=== PATIENT | female | born 1970 | race Caucasian/White ===

== ENCOUNTER 2017-06-10 09:14 | Observation (INO) | payer MEDICAID, OTHER ==
[~2017-06-10] VITALS: Ht 157.5 cm; Wt 70.5 kg
[2017-06-10] MEDS ORDERED: ASPIRIN 325 MG TAB PO STA (10:01)
[2017-06-10] MEDS ORDERED: NITROGLYCERIN 2% 1 GM OINT PKT TD STA (10:01)
--- NOTE | 2017-06-10 11:28 | RADRPT ---
PROCEDURE: XR Chest. CLINICAL INDICATION: chest pain TECHNIQUE: Single frontal view of the chest was obtained COMPARISON: None FINDINGS: The heart and mediastinum are within normal limits. The lungs are clear. There is no pleural effusion or pneumothorax. RPTAT: AA IMPRESSION: No acute disease. .Jesu Jaramillo MD, Date Time Electronically viewed and signed by .Jesu Jaramillo MD, on 06/10/2017 11:27 .S/
[2017-06-10 13:53] LABS: BASOPHILS % 0.5 % (0.0-2.0); EOSINOPHILS % 0.5 % (0.0-7.0); HEMATOCRIT 40.8 % (37.0-47.0); HEMOGLOBIN 13.5 g/dl (12.0-16.0); LYMPHOCYTES # 1.3 10^3/ul (0.8-2.9); LYMPHOCYTES % 19.5 % (15.0-51.0); MEAN CORPUSCULAR HEMOGLOBIN 30.2 pg (29.0-33.0); MEAN CORPUSCULAR HGB CONC 33.1 g/dl (32.0-37.0); MEAN CORPUSCULAR VOLUME 91.3 fl (82.0-101.0); MEAN PLATELET VOLUME 10.7 fl (7.4-10.4); MONOCYTE # 0.3 10^3/ul (0.3-0.9); MONOCYTES % 5.1 % (0.0-11.0); NEUTROPHIL # 4.8 10^3/ul (1.6-7.5); NEUTROPHILS % 74.1 % (39.0-77.0); PLATELET COUNT 240 10^3/UL (140-415); RED BLOOD COUNT 4.47 10^6/ul (4.20-5.40); RED CELL DISTRIBUTION WIDTH 13.2 % (11.5-14.5); WHITE BLOOD COUNT 6.4 10^3/ul (4.8-10.8)
[2017-06-10 14:03] VITALS: TEMP 98
[2017-06-10 14:08] LABS: INR 0.88; PROTIME 11.9 Sec (12.2-14.2); PT RATIO 0.9
[2017-06-10 14:09] LABS: PARTIAL THROMBOPLASTIN TIME 27.3 Sec (25.0-35.0)
[2017-06-10] MEDS ORDERED: SOD CHLORIDE 0.9% 1,000 ML IV STA (14:10)
[2017-06-10 14:11] LABS: ALANINE AMINOTRANSFERASE 39 IU/L (13-69); ALBUMIN 4.2 g/dl (3.3-4.9); ALBUMIN/GLOBULIN RATIO 1.27; ALKALINE PHOSPHATASE 99 IU/L (42-121); ANION GAP 17 (8-16); ASPARTATE AMINO TRANSFERASE 26 IU/L (15-46); BILIRUBIN,INDIRECT 0.2 mg/dl (0-1.1); BILIRUBIN,TOTAL 0.2 mg/dl (0.2-1.3); BLOOD UREA NITROGEN 8 mg/dl (7-20); CALCIUM 8.8 mg/dl (8.4-10.2); CARBON DIOXIDE 24 mmol/L (21-31); CHLORIDE 107 mmol/L (97-110); CREATININE 0.64 mg/dl (0.44-1.00); GLUCOSE 91 mg/dl (70-220); SODIUM 144 mmol/L (135-144); TOTAL PROTEIN 7.5 g/dl (6.1-8.1)
--- NOTE | 2017-06-10 14:21 | ERA ---
ER Documentation Chief Complaint Date/Time DATE: 06/10/17 TIME: 14:18 Chief Complaint Complains of chest pain since this am HPI Is a 46-year-old female who states she is history of high cholesterol complains of chest pain for the past 3 weeks is getting worse progressively. She says today is getting stronger than usual she complains of some substernal chest pressure with radiation to the left arm some mild shortness of breath no diaphoresis palpitations. The patient denies any recent excessive stress in her life or anxiety or sense of impending doom however here in the ER she seems tearful. When I asked her why she is tearful as she is having some type of anxiety reaction she states this is the first time that she does not like this before. ROS All systems reviewed and are negative except as per history of present illness. Medications Home Meds No Active Prescriptions or Reported Meds Allergies Allergies: Coded Allergies: No Known Allergy (Unverified , 06/10/17) PMhx/Soc Medical and Surgical Hx: pt denies Medical Hx, pt denies Surgical Hx Hx Alcohol Use: No Hx Substance Use: No Hx Tobacco Use: No Smoking Status: Never smoker FmHx Family History: No coronary disease Physical Exam Vitals Vital Signs Date Time Temp Pulse Resp B/P Pulse Ox O2 Delivery O2 Flow Rate FiO2 06/10/17 14:03 98.0 63 20 125/89 100 Room Air 06/10/17 12:15 98.0 71 18 129/71 99 Room Air 06/10/17 12:15 Nasal Cannula 06/10/17 09:17 98.3 94 20 147/86 98 Physical Exam Const: Well-developed, well-nourished Head: Atraumatic, normocephalic Eyes: Normal Conjunctiva, PERRLA, EOMI, normal sclera, no nystagmus ENT: Normal External Ears, Nose and Mouth, moist mucus membranes. Neck: Full range of motion. No meningismus, no lymphadenopathy. Resp: Clear to auscultation bilaterally, no wheezing, rhonchi, rales Cardio: Regular rate and rhythm, no murmurs, S1 S2 present Abd: Soft, non tender x 4, non distended. Normal bowel sounds, no guarding or rebound, no pulsitile abdominal masses or bruits Skin: No petechiae or rashes, no ecchymosis , no maculopapular rash Back: No midline or flank tenderness Ext: No cyanosis, or edema, FROM x 4, normal inspection, neurovascularly intact x 4 Neur: Awake and alert, STR 5/5 x 4, sensation intact x 4, no focal findings, cerebellum intact Psych: Somewhat tearful Result Diagram: 06/10/17 1335 06/10/17 1335 Results 24 hrs Laboratory Tests Test 06/10/17 13:35 White Blood Count 6.410^3/ul Red Blood Count 4.4710^6/ul Hemoglobin 13.5g/dl Hematocrit 40.8% Mean Corpuscular Volume 91.3fl Mean Corpuscular Hemoglobin 30.2pg Mean Corpuscular Hemoglobin Concent 33.1g/dl Red Cell Distribution Width 13.2% Platelet Count 09956^3/UL Mean Platelet Volume 10.7fl Neutrophils % 74.1% Lymphocytes % 19.5% Monocytes % 5.1% Eosinophils % 0.5% Basophils % 0.5% Nucleated Red Blood Cells % 0.0/100WBC Neutrophils # 4.810^3/ul Lymphocytes # 1.310^3/ul Monocytes # 0.310^3/ul Eosinophils # 0.010^3/ul Basophils # 0.010^3/ul Nucleated Red Blood Cells # 0.010^3/ul Prothrombin Time 11.9Sec Prothrombin Time Ratio 0.9 INR International Normalized Ratio 0.88 Activated Partial Thromboplast Time 27.3Sec Sodium Level 144mmol/L Potassium Level 4.0mmol/L Chloride Level 107mmol/L Carbon Dioxide Level 24mmol/L Anion Gap 17 Blood Urea Nitrogen 8mg/dl Creatinine 0.64mg/dl Glucose Level 91mg/dl Calcium Level 8.8mg/dl Total Bilirubin 0.2mg/dl Direct Bilirubin 0.00mg/dl Indirect Bilirubin 0.2mg/dl Aspartate Amino Transf (AST/SGOT) 26IU/L Alanine Aminotransferase (ALT/SGPT) 39IU/L Alkaline Phosphatase 99IU/L Troponin I Pending Total Protein 7.5g/dl Albumin 4.2g/dl Globulin 3.30g/dl Albumin/Globulin Ratio 1.27 Current Medications Medications (Trade) Dose Ordered Sig/Timmy Route PRN Reason Start Time Stop Time Status Last Admin Dose Admin Aspirin (Aspirin) 325 mg ONCE STAT PO 06/10/17 10:01 06/10/17 10:03 DC 06/10/17 10:35 Nitroglycerin (Nitroglycerin 2% Oint) 1 inch ONCE STAT TD 06/10/17 10:01 06/10/17 10:03 DC 06/10/17 10:35 Insulin Human Regular 8 unit 8 unit ONCE ONCE SC 06/10/17 14:30 06/10/17 14:31 Sodium Chloride (NS) 1,000 ml @ 1,000 mls/hr Q1H STAT IV 06/10/17 14:10 06/10/17 15:09 Procedures/MDM EKG: Rate/Rhythm: Normal Sinus Rhythm,NL intervals QRS, ST, QT: NORMAL MI, QRS, QT] Impression: NORMAL EKG PROCEDURE: XR Chest. CLINICAL INDICATION: chest pain TECHNIQUE: Single frontal view of the chest was obtained COMPARISON: None FINDINGS: The heart and mediastinum are within normal limits. The lungs are clear. There is no pleural effusion or pneumothorax. RPTAT: AA IMPRESSION: No acute disease. .Jesu Jaramillo MD, MD Date Time Electronically viewed and signed by .Jesu Jaramillo MD, MD on 06/10/2017 11: 27 .S/ CC: JOSE SHIELDS DO Patient's symptoms are concerning for cardiac cause will require inpatient workup and continuous monitoring. Further w/u for ischemia, arrhythmia, PE or dissection will be deferred to the inpatient team. Accepting Care Team: Current data and ongoing care discussed. Time: Time of admission Primary Provider: [XOXOXO] Consulting: [XOXOXO] Outstanding Data: none Departure Diagnosis: Primary Impression: Chest pain Qualified Code: R07.9 - Chest pain, unspecified type Condition: Stable JOSE SHIELDS DO Jun 10, 2017 14:21
[2017-06-10 14:24] LABS: TROPONIN-I < 0.012 ng/ml (0.00-0.12)
[2017-06-10] MEDS ORDERED: ACETAMINOPHEN 325 MG TAB PO PRN ×2 (14:30→16:00)
[2017-06-10] MEDS ORDERED: INSULIN REGULAR 10 ML INJ SC ONE (14:30)
[2017-06-10] MEDS ORDERED: ONDANSETRON 4 MG INJ IV PRN ×2 (14:30→16:00)
[2017-06-10] MEDS ORDERED: NACL 0.9% 3 ML SYG IV SCH (16:00)
[2017-06-10] MEDS ORDERED: HYDROCODONE/APAP (5/325) TAB PO PRN (16:00)
[2017-06-10] MEDS ORDERED: LORAZEPAM 0.5 MG TAB PO PRN (16:00)
[2017-06-10] MEDS ORDERED: NITROGLYCERIN (SL) 0.4 MG TAB SL PRN (16:00)
[2017-06-10] MEDS ORDERED: morphine 2 MG INJ IV PRN (16:00)
--- NOTE | 2017-06-10 16:09 | HP ---
Date/Time of Note Date/Time of Note DATE: 06/10/17 TIME: 16:05 Assessment/Plan VTE Prophylaxis VTE Prophylaxis Intervention: LMWH Lines/Catheters IV C[facility]ter Type [facility]from [facility] Assessment/Plan Chief Complaint/Hosp Course 1. Atypical chest pain. The patient's chest pain is most likely noncardiac in origin. However, will rule out for any underlying acute coronary syndrome with troponins and 2D echocardiogram. 2. Left breast lump. Bilateral breast ultrasound will be obtained to further evaluate this. 3. Dyslipidemia. The patient will be started on a low-cholesterol diet. A fasting lipid panel will be obtained. 4. Anxiety. The patient will be started on as needed anxiolytics. 5. Abdominal pain. The patient described the abdominal pain as chronic. Nevertheless, a CT scan of the abdomen and pelvis will be obtained to further evaluate this since the patient has been very concerned about her abdominal pain. Plan: The patient will be admitted to inpatient telemetry floor. The patient will be started on a low-cholesterol diet. The patient will be started on DVT prophylaxis and gastrointestinal prophylaxis. The patient will remain a full code. Activities will be as tolerated. The rest of the patient's management will be based on the clinical course and the results of diagnostic studies. Based on the patient's clinical presentation, she most probably requires at least one midnight;s stay for further management and evaluation of her clinical presentation. The case and management of this patient was fully discussed with Dr. Conklin. Problems: HPI/ROS Admit Date/Time Admit Date/Time Hx of Present Illness Reason for admission: Chest pain. This is a 46-year-old female with past medical history of dyslipidemia who came to the emergency room with chief complaint of left chest wall pain. Patient verbalized that she has been having chest pain on and off for the past few days. The patient denied any associated dyspnea. The patient denied any associated vomiting or diaphoresis. Patient denied any fevers or chills. The patient apparently had a mammogram done on 06/09/2017 and she was told that the there was some "abnormal finding" in the mammogram. The patient also verbalized that she noticed that she has a left breast lump for the past 3 weeks. Patient denied any nipple discharge, nipple discoloration, or nipple inversion. Since then, the patient has been very anxious and nervous. The patient verbalized that she has not been able to sleep. Patient also verbalized that she felt like as if she is going to go out and act like a mad person. Patient also verbalized a right lower quadrant abdominal pain that has been going on for a long time. The patient apparently had a right sided abdominal ultrasound done on 06/09/2017 and the patient is not sure about the results. In the emergency room, the patient had normal sinus rhythm on 12-lead EKG. The patient's initial troponins were negative. The patient was noticed to be tearful in the emergency room. She was treated with transdermal nitroglycerin and aspirin along with IV fluids in the emergency room ROS Constitutional: nausea Eyes: no complaints ENT: no complaints Respiratory: no complaints Cardiovascular: chest pain Gastrointestinal: pain Genitourinary: no complaints Musculoskeletal: back pain Skin: no complaints Neurologic: no complaints Endocrine: no complaints Lymphatic: no complaints Psychological: anxiety Immunologic: no complaints PMH/Family/Social Past Medical History Medical History: high cholesterol Past Surgical History Past Surgical Hx: other () Family History Significant Family History: diabetes Social History Works in a restaurant. Alcohol Use: none Smoking Status: Never smoker Drug Use: none Exam/Review of Systems Vital Signs Vitals Vital Signs Date Time Temp Pulse Resp B/P Pulse Ox O2 Delivery O2 Flow Rate FiO2 06/10/17 14:03 98.0 63 20 125/89 100 Room Air Exam Exam General: Adequately build 46 year-old female lying in bed in no apparent distress. HEENT: Normocephalic, atraumatic. Eyes: Anicteric sclerae, conjunctivae clear. ENT: Nasal septum midline, oral mucosa moist. Neck supple, no JVD noticed. Respiratory: Bilaterally clear breath sounds. No use of accessory muscles of respiration. No adventitious breath sounds. Cardiovascular: S1, S2 heard. No murmurs or gallops. Breasts: Left breast palpable lump at the 12 o'clock position about 1-2 cm away from the nipple. No nipple retraction. Abdomen: Soft, nontender, and nondistended. Bowel sounds positive in all 4 quadrants. Genitourinary: Deferred. Extremities: No cyanosis, no clubbing, no edema. Peripheral pulses palpable. Neurologic: Cranial nerves II through XII grossly intact. The patient is awake, alert, and oriented. Skin: Normal skin turgor. No skin rashes. Labs Result Diagram: 06/10/17 1335 06/10/17 1335 Procedures Procedures CXR IMPRESSION: No acute disease. MARIA GUADALUPE MYERS NP Jun 10, 2017 16:09
--- NOTE | 2017-06-10 16:32 | RADRPT ---
PROCEDURE: Bilateral breast ultrasound. CLINICAL INDICATION: Bilateral breast palpable lesion. TECHNIQUE: High-resolution sonography of both breasts was performed in the axial and sagittal plan es. COMPARISON: No prior study is available for comparison. FINDINGS: There is no cystic or solid mass on either side. Normal breast parenchyma is present bilaterally. IMPRESSION: 1. Normal bilateral breast ultrasound. 2. Any further management regarding any breast symptoms should be based upon clinical grounds. RPTAT: QQ .Benjamin Greco MD, MD Date Time Electronically viewed and signed by .Benjamin Greco MD, MD on 06/10/2017 16:32 .R/
[2017-06-10 18:31] VITALS: BP 128/71; PULSE 62; RESP 18
[2017-06-10 18:40] VITALS: Ht 157.5 cm; Wt 70.5 kg
[2017-06-10 19:26] LABS: BARBITURATES Negative (NEGATIVE); BENZODIAZEPINES Negative (NEGATIVE); CANNABINOIDS Negative (NEGATIVE); COCAINE Negative (NEGATIVE); OPIATES Negative (NEGATIVE)
[2017-06-10 19:58] LABS: CANCER ANTIGEN 125 11.1 U/ml (0.0-35.0); CARCINOEMBRYONIC ANTIGEN 0.7 ng/ml (0.0-5.0)
[2017-06-10 20:00] VITALS: BP 135/78; RESP 20
[2017-06-10 20:02] LABS: CANCER ANTIGEN 19-9 5.3 U/ml (0.0-37.0)
[2017-06-10 20:05] VITALS: PULSE 60
[2017-06-10 20:25] LABS: CREATINE KINASE 42 IU/L (23-200)
[2017-06-10 20:38] LABS: CK-MB 0.65 ng/ml (0.0-2.4)
[2017-06-10 20:46] LABS: TROPONIN-I < 0.012 ng/ml (0.00-0.12)
[2017-06-10] MEDS: FAMOTIDINE 20 MG TAB PO SCH (21:08)
--- NOTE | 2017-06-10 23:28 | RADRPT ---
PROCEDURE: CT Abdomen and Pelvis without contrast. CLINICAL INDICATION: Pain. TECHNIQUE: CT scan of the abdomen and pelvis was performed on a multidetector slice CT scanner. No intravenous contrast material was utilized. Sagittal and coronal reformatted images were obtained fr om the axial source images. Images were reviewed on a high-resolution PACS workstation. Exam CTDlvol = 11 mGy and DLP = 566 Gy-cm. One of the following 3 dose reduction techniques were used: Automated exposure control; adjustment of the mA and/or kV according to patient size; or use of iterative rec onstruction technique. COMPARISON: None. FINDINGS: There is no obstruction or ileus. The appendix is not identified. There is no secondary evidence f or appendicitis.. There is no evidence for diverticulitis. There is a small amount of pelvic free f luid.. The liver is overall normal in size. No intrahepatic lesions are identified. Multiple small calcifie d gallstones are present within the gallbladder. The gallbladder is normal in appearance. There is no definite biliary ductal dilation. Pancreas is normal in appearance. The spleen is unremarkable. T here are no adrenal masses. The aorta is normal caliber. Kidneys are normal in appearance without hydronephrosis, mass or calculus. There is no perinephric c ollection. Ureters are of normal caliber and without evidence for an obstructing calculus The urinar y bladder is partially contracted with nonspecific wall thickening.. The uterus and ovaries are grossly unremarkable. Limited evaluation of the lung bases is unremarkable. There are degenerative changes of the lower lumbar spine. IMPRESSION: 1. Cholelithiasis. No CT evidence for acute cholecystitis or biliary obstruction. 2. No evidence for diverticulitis. 3. Appendix not identified. No secondary evidence for appendicitis. 4. No bowel obstruction or ileus. 5. No obstructive uropathy. Nonspecific urinary bladder wall thickening. A cystitis cannot be exc luded. 6. Small amount of pelvic free fluid. 7. Grossly unremarkable uterus and ovaries. 8. Degenerative changes of the lower lumbar spine. RPTAT: HMVK .Reinaldo Duff MD, MD Date Time Electronically viewed and signed by .Reinaldo Duff MD, on 06/10/2017 23:28 .K/
[2017-06-10] MEDS ORDERED: ZOLPIDEM 5 MG TAB PO ONE (23:30)
[2017-06-11] VITALS (8 sets, daily range): BP systolic 100–126; BP diastolic 53–62; PULSE 66–79; RESP 15–19
[2017-06-11 07:55] LABS: BASOPHILS % 0.3 % (0.0-2.0); EOSINOPHILS # 0.1 10^3/ul (0.0-0.5); EOSINOPHILS % 1.2 % (0.0-7.0); HEMATOCRIT 41.4 % (37.0-47.0); HEMOGLOBIN 13.8 g/dl (12.0-16.0); LYMPHOCYTES % 25.6 % (15.0-51.0); MEAN CORPUSCULAR HEMOGLOBIN 30.3 pg (29.0-33.0); MEAN CORPUSCULAR HGB CONC 33.3 g/dl (32.0-37.0); MEAN PLATELET VOLUME 10.8 fl (7.4-10.4); MONOCYTE # 0.4 10^3/ul (0.3-0.9); MONOCYTES % 5.8 % (0.0-11.0); NEUTROPHIL # 5.1 10^3/ul (1.6-7.5); PLATELET COUNT 250 10^3/UL (140-415); RED BLOOD COUNT 4.55 10^6/ul (4.20-5.40); RED CELL DISTRIBUTION WIDTH 13.3 % (11.5-14.5); WHITE BLOOD COUNT 7.6 10^3/ul (4.8-10.8)
[2017-06-11 08:17] LABS: ALBUMIN 4.1 g/dl (3.3-4.9); ALBUMIN/GLOBULIN RATIO 1.28; BILIRUBIN,INDIRECT 0.3 mg/dl (0-1.1); BILIRUBIN,TOTAL 0.3 mg/dl (0.2-1.3); CALCIUM 8.9 mg/dl (8.4-10.2); CREATININE 0.76 mg/dl (0.44-1.00); POTASSIUM 3.8 mmol/L (3.5-5.1); TOTAL PROTEIN 7.3 g/dl (6.1-8.1)
[2017-06-11 08:18] LABS: CREATINE KINASE 43 IU/L (23-200); MAGNESIUM 2.2 mg/dl (1.7-2.5); PHOSPHORUS 3.6 mg/dl (2.5-4.9)
[2017-06-11 08:22] LABS: TROPONIN-I < 0.012 ng/ml (0.00-0.12)
[2017-06-11] MEDS ORDERED: ASPIRIN 81 MG TAB PO SCH (09:00)
[2017-06-11] MEDS ORDERED: ENOXAPARIN 40 MG/0.4 ML SYG SC SCH (09:00)
[2017-06-11] MEDS: FAMOTIDINE 20 MG TAB PO SCH (09:25)
--- NOTE | 2017-06-11 13:15 | PDOCDIS ---
Discharge Instructions DIAGNOSIS Discharge Diagnosis Atypical chest pain. Dyslipidemia. CONDITION Patient Condition: Stable HOME CARE INSTRUCTIONS: Diet Instructions: Low Fat /Cholesterol FOLLOW UP/APPOINTMENTS Follow-up Plan Jeffery Hernández MD Specialty: Internal Medicine Office Address: [address] [place] [address] [place], [place] [id number] Office OTHER ORDERS: Other Orders: 1. Take medications as needed for anxiety. 2. Take a low-cholesterol diet. 3. Resume activities as tolerated. 4. Follow-up with your primary care physician 1 week. If you do not have a primary care physician, please call Dr. Jeffery Hernández's office. SCHOOL/WORK RELEASE May return to School/Work on: Jun 13, 2017 May return to School/Work with: No Restrictions MARIA GUADALUPE MYERS NP Jun 11, 2017 13:15
[2017-06-11] MEDS ORDERED: CHOL100062 PO (13:16)
[2017-06-11] MEDS ORDERED: LORA0.5T PO (13:16)
--- NOTE | 2017-06-11 18:20 | DS ---
DATE OF ADMISSION: 06/10/2017 DATE OF DISCHARGE: 06/11/2017 FINAL DIAGNOSES: 1. Atypical chest pain, acute coronary syndrome rule out. 2. Left breast lump. Bilateral breast ultrasound negative. 3. Dyslipidemia. 4. Anxiety disorder. 5. Abdominal pain. CT scan negative for any acute findings. 6. Vitamin D deficiency. HOSPITAL COURSE: This is a 46-year-old, female with past medical history of dyslipidemia who came to the emergency room with chief complaint of left chest wall pain. The patient verbalized that she has been having chest pain on and off for the past few days. The patient denied any associated dyspnea. The patient denied any associated vomiting or diaphoresis. The patient denied any fevers or chills. The patient apparently had a mammogram done on 06/09/2017 and she was told there was some "abnormal finding" in the mammogram. The patient also verbalized that she noticed that a left breast lump for the past 3 weeks. The patient denied any nipple discharge, nipple discoloration, or nipple inversion. Since the patient learned about her other mammogram results the patient has been very anxious and the patient verbalized that she has been unable to sleep well. The patient also verbalized a right lower quadrant abdominal pain that has been going on for a long time. The patient apparently had a right side abdominal ultrasound done on 06/09/2017 and the patient is not sure about the results. In the emergency room, the patient had normal sinus rhythm on EKG. The patient's recordings were negative. The patient was noticed to be tearful in the emergency room. She was treated with transdermal nitroglycerin, aspirin, along with IV fluids in the emergency room. The patient was admitted to inpatient telemetry floor. Serial troponins were ordered. A 2D echocardiogram was ordered. The patient was started on anxiolytics. The patient's serial troponins remained negative. The patient's 2D echocardiogram is pending at this time. The patient remained in normal sinus rhythm. The patient has no evidence of any underlying acute coronary syndrome. The patient's chest pain could be most likely secondary to underlying anxiety. The patient was started on p.r.n. benzodiazapine for her underlying anxiety. The patient underwent a bilateral breast ultrasound that was negative for any lesions. The patient had outpatient mammogram done already. The patient should followup with the results of this for any further questions regarding the left breast lump. The patient was noticed to have dyslipidemia. The patient was placed on low cholesterol diet. The patient was noticed to have vitamin D deficiency. The patient will be discharged home on vitamin D supplements. The patient's hemoglobin A1c was within normal limits. The patient was also complaining of vague abdominal pain. Consequently, the patient underwent a CT scan of the abdomen and pelvis that was negative for any acute findings. The CT showed nonspecific urinary bladder wall thickening. The patient had no urinary symptoms. Hence the patient was not treated for any urinary tract infection. The patient's tumor markers were negative. The patient had a stable hospital course. The patient is stable to be discharged home to be followed up with outpatient primary care physician. DISCHARGE DISPOSITION/PLAN: The patient will be discharged home today. The patient was instructed to take medications as needed for anxiety. She was instructed to take a local cholesterol diet. She was instructed to resume activities as tolerated. The patient was instructed to followup with her primary care physician in 1 week and if she does not have a primary care physician to please call Dr. Jeffery Hernández's Office. The patient was instructed that she may return to work on 06/13/2017 with no restrictions. The patient verbalized understanding of her discharge instructions. CONDITION AT DISCHARGE: Stable. DISCHARGE MEDICATIONS: 1. Vitamin D3 1000 units p.o. daily. 2. Ativan 0.5 mg p.o. bedtime p.r.n. anxiety (number 10 tablets). PERTINENT LABORATORY AND DIAGNOSTIC DATA: 1. Bilateral breast ultrasound. Normal bilateral breast ultrasound. 2. CT scan of the abdomen and pelvis. No cholelithiasis, no CT evidence for acute cholecystitis or biliary infection. No evidence for diverticulitis. No evidence for appendicitis. No obstruction or ileus. No obstructive uropathy. Nonspecific urinary bladder wall thickening. Small amount of pelvic free fluid. Grossly unremarkable uterus and ovaries. There are degenerative changes for the lower lumbar spine. 3. Chest x-ray reads no acute disease. 4. CBC, WBC 7.6, hemoglobin 13.8, hematocrit 41.4, platelet count 250. 5. BMP, sodium 139, potassium 3.8, chloride 106, carbon dioxide 24, anion gap 13, BUN 30, creatinine 0.76, glucose 94, calcium 8.9. 6. Fasting lipid panel, triglycerides 118, total cholesterol 212, LDL 126, and HDL 52. 7. Hemoglobin A1c 5.7. 8. Urine drug toxicology. Negative. The case and management of this patient was thoroughly discussed with Dr. Conklin. Approximately 35 minutes was spent on coordinating the discharge on this patient. Dictated By: Kelvin Mcmanus NP /[place]/leonor /Document#: [id number] HENNA
--- NOTE | 2017-06-11 22:40 | RADRPT ---
Echocardiogram Report Patient Name: MARILYNN GRANADOS Gender: Female Date: 1970 Study Date: 11-Jun-2017 [employer] Set Up Mechanic: Adelaida [facility] Location: [id number] Ref. Physician: MARIA GUADALUPE MYERS Quality: Adequate Procedures: Transthoracic echocardiogram with complete 2D, M-Mode, and doppler examination. Indications: Evaluate Left Ventricular function. 2D/M Mode Doppler Measurement Value Normal Ranges Measurement Value Normal Ranges LVIDd 2D 3.6 3.5 - 5.6 cm AV Peak Dawson 1.6 m/sec LVIDs 2D 2.4 2.1 - 4.1 cm AV Peak PG 10.0 mmHg FS 2D 34.4 % LVOT Peak Dawson 1.1 m/sec LVPWd 2D 1.0 0.6 - 1.1 cm LVOT Peak PG 4.0 mmHg IVSd 2D 1.0 0.6 - 1.1 cm MV E Peak Dawson 0.9 m/sec IVS/LVPW 2D 1.0 MV A Peak Dawson 0.8 m/sec AoR Diam 2D 2.4 2.0 - 3.7 cm MV E/A 1.0 LA/Ao 2D 1 0 - 1 MV Decel Time 236 msec EDV 2D 47.8 cm3 MV E/A 1.0 ESV 2D 13.5 cm3 TR Peak Dawson 2.5 m/sec LA Dimen 2D 3.4 2.3 - 4.0 cm TR Peak PG 24.0 mmHg RVSP 27.0 mmHg Findings Left Ventricle: Normal left ventricular systolic function. Normal left ventricular cavity size. Normal left ventricular wall thickness. Ejection fraction is visually estimated at 60 %. Tissue Doppler/Mitral Doppler indices are within normal limits. Right Ventricle: Normal right ventricular size. Normal right ventricular systolic function. Left Atrium: The left atrium is normal in size. Right Atrium: The right atrium is normal in size. Mitral Valve: Mild mitral leaflet calcification. Mild mitral annular calcification. Trace mitral regurgitation. Aortic Valve: Normal appearance of the aortic valve. No significant aortic stenosis or insufficiency. Tricuspid Valve: Normal appearance of the tricuspid valve. Estimated peak PA systolic pressure 27 mmHg. There is mild tricuspid regurgitation. Pulmonic Valve: Pulmonic valve not well visualized. There is trace pulmonic regurgitation. Pericardium: Normal pericardium with no significant pericardial effusion. Aorta: Normal aortic root. IVC: Normal size and normal respiratory collapse consistent with normal right atrial pressure. Conclusions Normal left ventricular systolic function. Normal left ventricular cavity size. Normal left ventricular wall thickness. Ejection fraction is visually estimated at 60 %. Tissue Doppler/Mitral Doppler indices are within normal limits. Normal right ventricular size. Normal right ventricular systolic function. Mild mitral leaflet calcification. Mild mitral annular calcification. Trace mitral regurgitation. Normal appearance of the aortic valve. No significant aortic stenosis or insufficiency. Normal appearance of the tricuspid valve. Estimated peak PA systolic pressure 27 mmHg. There is mild tricuspid regurgitation. Normal pericardium with no significant pericardial effusion. Electronically Signed By: Salbador Ovalle 11-Jun-2017 22:39:25 -0700 Patient Name: MARILYNN GRANADOS Study Date: 11-[id number]
== END 2017-06-11 15:34 | disposition home or self-care (01) ==
LOC: E/R 09:14 → MS4 14:27
PROVIDERS: ADMIT Internal Medicine; ATTEND Internal Medicine
DX: R07.89 Other chest pain (principal); N63 Unspecified lump in breast; E78.5 Hyperlipidemia, unspecified; F41.9 Anxiety disorder, unspecified; R10.9 Unspecified abdominal pain; G89.29 Other chronic pain; E55.9 Vitamin D deficiency, unspecified
CPT/HCPCS: 36415; 71010; 74176; 76641; 80053; 80061; 80307; 82105; 82306; 82378; 82550; 82553; 82652; 83036; 83735; 84100; 84439; 84443; 84484; 84703; 85025; 85610; 85730; 86301; 86304; 93005; 93306; J1650; J1815; J2270; J7030; Z7500; Z7502; Z7610; G0378

== ENCOUNTER 2017-06-17 11:40 | Outpatient (CLI) | payer MEDICAID ==
[~2017-06-17] VITALS: Ht 157.5 cm; Wt 70.0 kg
[~2017-06-17 11:40] MED LIST: CHOL100062 PO; LORA0.5T PO
[2017-06-17 11:45] VITALS: BP 120/62; PULSE 68; RESP 16; Ht 157.5 cm; Wt 70.0 kg
--- NOTE | 2017-06-17 12:10 | PN ---
Date/Time of Note Date/Time of Note DATE: 06/17/17 TIME: 12:06 Outpatient Progress Note Chief Complaint Chest pain/abdominal pain/hyperlipidemia/anxiety HPI Chest pain/patient complained of chest pain, left-sided, precordial, more when patient lying down, and also with a pressure, no chest rash congestion, no shortness of breath, no fever chill, Hyperlipidemia/no xanthoma, patient was started on low-cholesterol diet, Anxiety/patient anxious nervous, Review of Systems Const: No Fever, no chills, no Wt. loss, slight fatigue, normal appetite, no diaphoresis. Eyes: No pain, no discharge, no redness, no visual change, no foreign body. ENT: No pain, no bleeding, no congestion, no sore throat, no dysphagia, no discharge or rhinitis. Lymph: No adenopathy, no tender nodes, no lymphedema. Resp: No SOB, no cough, no sputum, no wheezing, no chest pain. CV: Left-sided chest pain, no palpitaions, no ROBLES, no PND, no edema. GI: Normal appetite, no pain, no nausea, no vomiting, no diarrhea, no blood, no constipation. : No frequency, no urgency, no dysuria, no hematuria, no flank pain, no discharge, no bleeding. Musc: No back pain, no neck pain, no knee pain, no restricted ROM. Skin: No rash, no skin lesions, no erythema, no laceration, no bruising, no pruritus. Neuro: No SAMPSON, no dizziness, no syncope, no seizure, no focal-weakness. Endo: No polyuria, no polydypsia, no dry-skin, no temp-intolerance. Psych: No hallucinations, no depression, no anxiety, no suicidal ideation. Ext: No edema, no pain, no ulcer, no weakness. Physical Exam Vital Signs Date Time Temp Pulse Resp B/P Pulse Ox O2 Delivery O2 Flow Rate FiO2 06/17/17 11:45 98.6 68 16 120/62 99 Room Air General Appearance: A 46 year-old female who appears well-developed, well- nourished, in no acute distress. Slightly obese, HEENT: Head normocephalic, atraumatic. Pupils equal, round, reactive to light and accommodate. Sclerae are no jaundice. Nasal turbinates pink without erythema or nasal discharge. Mucous membranes pink and moist without lesions. Oropharynx clear without any exudate or discharge. NECK: Supple. Trachea midline, No thyromegaly, No cervical lymphadenopathy, No mass, No carotid bruits, No JVD, Carotid pulses 2+ bilaterally. PULMONARY: Clear to auscultaion bilaterally, No retractions, Chest expansion symmetric bilaterally, no rales, no ronchi, no dulness on percussion. CARDIAC: Normal SI and S2, Regular rate and rythm, no murmur, gallop, or rub. GASTROINTESTINAL: Abdomen is soft, non-tender, Non Rigid, No distention, Positive bowel sounds x4 quadrants, Liver normal. SKIN: Warm, dry, no rash, no bruise, no echmosis. EXTREMITIES: Bilateral lower extremities normal, no edema, no phlabitus, pulse palpable, no contracture patient has musculoskeletal pain, especially left side of the chest wall, and the pain in the chest is reproducible by local pressure, and also in the lower part of the ribs especially front and back,. MUSCULOSKELETAL: Spine Normal, Non-tender, Normal range of motion, No swelling, no deformity, no clubbing, or cyanosis, the patient has no edema to bilateral lower extremities, dorsalis pedis pulses palpable bilaterally. NEUROLOGIC: The patient is awake, alert, oriented, responding to yes/no questions appropriately, moving all extremities, cranial nerve intact, normal strenght, normal power, normal coordination, normal gait. Allergies Coded Allergies: No Known Allergy (Unverified , 06/10/17) PMH Hyperlipidemia/history of chest pain/anxiety/breast mass, Social Hx No smoking no drinking, Family Hx Noncontributory Assessment/Plan Impression Chest pain/abdominal pain resolved/hyperlipidemia/anxiety Plan Patient education done about chest pain, patient chest pain is reproducible by local pressure on upper part of the chest, patient also has a pain in the lower part of the chest front and back, all musculoskeletal pain, discussed with the patient, patient's lying down on the floor for 1 month without any bed, patient was sleeping in a heart floor, We will start on Motrin 400 mg p.o. 4 times daily #100, with food, We will also give Zantac 300 mg 1 daily #30, Patient encouraged with the follow with the primary care physician, Medications Home Meds Active Scripts Lorazepam* (Lorazepam*) 0.5 Mg Tablet, 0.5 MG PO HS Y for ANXIETY, #10 TAB Prov:MARIA GUADALUPE MYERS NP 06/11/17 Cholecalciferol* (Vitamin D3*) 1,000 Unit Tablet, 1000 UNIT PO DAILY, #30 TAB Prov:MARIA GUADALUPE MYERS NP 06/11/17 DEL MCMULLEN MD Jun 17, 2017 12:10
== END 2017-06-17 16:56 | disposition home or self-care (01) ==
LOC: DCC 11:40
PROVIDERS: ATTEND Internal Medicine
DX: R07.9 Chest pain, unspecified (principal); R10.9 Unspecified abdominal pain; E78.5 Hyperlipidemia, unspecified; F41.9 Anxiety disorder, unspecified
CPT/HCPCS: G0463

== ENCOUNTER → 2017-07-01 | Outpatient (CLI) | payer MEDICAID ==
[~2017-07-01] VITALS: Ht 157.5 cm; Wt 70.5 kg
[2017-07-01 11:42] VITALS: BP 127/61; PULSE 63; RESP 16; Ht 157.5 cm; Wt 70.5 kg
--- NOTE | 2017-07-01 12:28 | PN ---
Date/Time of Note Date/Time of Note DATE: 07/01/17 TIME: 12:25 Outpatient Progress Note Chief Complaint PUD/hyperlipidemia/anxiety HPI PUD/patient had heartburn, patient was started on Zantac, patient feeling much better, patient does not have any chest pain also, patient was recently hospitalized with a chest pain, no palpitation, no diaphoresis, no tingling or numbness on the left hand, No heartburn, no black stool, Hyperlipidemia/no xanthoma Anxiety/patient has history of anxiety, no history of any suicidal idea or depression, doing much better, Vitamin D deficiency patient on no vitamin D oral medication, Review of Systems Const: No Fever, no chills, no Wt. loss, no Fatigue, normal appetite, no diaphoresis. Eyes: No pain, no discharge, no redness, no visual change, no foreign body. ENT: No pain, no bleeding, no congestion, no sore throat, no dysphagia, no discharge or rhinitis. Lymph: No adenopathy, no tender nodes, no lymphedema. Resp: No SOB, no cough, no sputum, no wheezing, no chest pain. CV: No chest pain, no palpitaions, no ROBLES, no PND, no edema. GI: Normal appetite, no pain, no nausea, no vomiting, no diarrhea, no blood, no constipation. : No frequency, no urgency, no dysuria, no hematuria, no flank pain, no discharge, no bleeding. Musc: No bone/joint pain, no back pain, no neck pain, no knee pain, no restricted ROM. Skin: No rash, no skin lesions, no erythema, no laceration, no bruising, no pruritus. Neuro: No SAMPSON, no dizziness, no syncope, no seizure, no focal-weakness. Endo: No polyuria, no polydypsia, no dry-skin, no temp-intolerance. Psych: No hallucinations, no depression, no anxiety, no suicidal ideation. Ext: No edema, no pain, no ulcer, no weakness. Physical Exam Vital Signs Date Time Temp Pulse Resp B/P Pulse Ox O2 Delivery O2 Flow Rate FiO2 07/01/17 11:42 98.1 63 16 127/61 98 Room Air General Appearance: A 46 year-old female who appears well-developed, well- nourished, in no acute distress. HEENT: Head normocephalic, atraumatic. Pupils equal, round, reactive to light and accommodate. Sclerae are no jaundice. Nasal turbinates pink without erythema or nasal discharge. Mucous membranes pink and moist without lesions. Oropharynx clear without any exudate or discharge. NECK: Supple. Trachea midline, No thyromegaly, No cervical lymphadenopathy, No mass, No carotid bruits, No JVD, Carotid pulses 2+ bilaterally. PULMONARY: Clear to auscultaion bilaterally, No retractions, Chest expansion symmetric bilaterally, no rales, no ronchi, no dulness on percussion. CARDIAC: Normal SI and S2, Regular rate and rythm, no murmur, gallop, or rub. GASTROINTESTINAL: Abdomen is soft, non-tender, Non Rigid, No distention, Positive bowel sounds x4 quadrants, Liver normal. SKIN: Warm, dry, no rash, no bruise, no echmosis. EXTREMITIES: Bilateral lower extremities normal, no edema, no phlabitus, pulse palpable, no contracture. MUSCULOSKELETAL: Spine Normal, Non-tender, Normal range of motion, No swelling, no deformity, no clubbing, or cyanosis, the patient has no edema to bilateral lower extremities, dorsalis pedis pulses palpable bilaterally. NEUROLOGIC: The patient is awake, alert, oriented, responding to yes/no questions appropriately, moving all extremities, cranial nerve intact, normal strenght, normal power, normal coordination, normal gait. Allergies Coded Allergies: No Known Allergy (Unverified , 06/10/17) Social Hx No smoking no drinking, Family Hx Noncontributory Assessment/Plan Impression PUD/hyperlipidemia/anxiety Plan Patient encouraged to follow with the primary care physician, Patient need to continue vitamin D 1000 unit daily Patient is much improved with Zantac 300 mg daily, will continue, patient need to follow with the primary care physician if she needs refill, If patient has any chest pain to inform the primary care physician or go to ER, Medications Home Meds Active Scripts Lorazepam* (Lorazepam*) 0.5 Mg Tablet, 0.5 MG PO HS Y for ANXIETY, #10 TAB Prov:MARIA GUADALUPE MYERS NP 06/11/17 Cholecalciferol* (Vitamin D3*) 1,000 Unit Tablet, 1000 UNIT PO DAILY, #30 TAB Prov:MARIA GUADALUPE MYERS NP 06/11/17 DEL MCMULLEN MD Jul 01, 2017 12:28
== END | disposition home or self-care (01) ==
LOC: DCC 11:30
PROVIDERS: ATTEND Internal Medicine
DX: K27.9 Peptic ulcer, site unspecified, unspecified as acute or chronic, without hemorrhage or perforation (principal); E78.5 Hyperlipidemia, unspecified; F41.9 Anxiety disorder, unspecified; E55.9 Vitamin D deficiency, unspecified

== ENCOUNTER 2019-01-16 03:13 | Emergency (ER) | payer SELFPAY ==
[~2019-01-16] VITALS: Ht 157.5 cm; Wt 68.7 kg
[2019-01-16 03:37] VITALS: Ht 157.5 cm; Wt 68.7 kg
[2019-01-16] MEDS ORDERED: DEXAMETHASONE 10 MG/ML 1 ML INJ IM ONE (09:00)
[2019-01-16] MEDS ORDERED: IBUPROFEN 800 MG TAB PO ONE (09:00)
[2019-01-16] MEDS ORDERED: METHOCARBAMOL 750 MG TAB PO ONE (09:00)
[2019-01-16] MEDS ORDERED: IBUP-1542 PO (09:55)
[2019-01-16] MEDS ORDERED: ACET-141 PO (09:55)
--- NOTE | 2019-01-16 09:59 | ERD ---
ER Documentation Chief Complaint Chief Complaint lower back pain since yesterday. denies trauma ROS All systems reviewed and are negative except as per history of present illness. Medications Home Meds Active Scripts Acetaminophen* (Acetaminophen*) 500 MG Extra Strength Tablet, 500 MG PO Q4H PRN for PAIN AND OR ELEVATED TEMP for 30 Days, TAB Prov:DIPTI LANDEROS DO 01/16/19 Ibuprofen* (Motrin*) 600 Mg Tab, 600 MG PO Q6H PRN for PAIN AND OR ELEVATED TEMP, #30 TAB Prov:DIPTI LANDEROS DO 01/16/19 Lorazepam* (Lorazepam*) 0.5 Mg Tablet, 0.5 MG PO HS PRN for ANXIETY, #10 TAB Prov:MARIA GUADALUPE MYERS [employer]INCHING MACHINE OPERATOR 06/11/17 Cholecalciferol* (Vitamin D3*) 1,000 Unit Tablet, 1000 UNIT PO DAILY, #30 TAB Prov:MARIA GUADALUPE MYERS CLINCHING MACHINE OPERATOR 06/11/17 Allergies Allergies: Coded Allergies: No Known Allergy (Unverified , 06/10/17) PMhx/Soc History of Surgery: Yes ( X2, LAST TIME WAS 13YRS AGO) Anesthesia Reaction: No Hx Neurological Disorder: No Hx Respiratory Disorders: No Hx Cardiac Disorders: No Hx Psychiatric Problems: Yes (DEPRESSION, ANXIETY 3 WEEKS) Hx Miscellaneous Medical Probl: No Hx Alcohol Use: No Hx Substance Use: No Hx Tobacco Use: No Smoking Status: Never smoker Physical Exam Vitals Vital Signs Date Temp Pulse Resp B/P (MAP) Pulse Ox O2 O2 Flow FiO2 Time Delivery Rate 01/16/19 98.0 81 18 145/69 99 03:37 (94) Physical Exam Const: No acute distress Head: Atraumatic Eyes: Normal Conjunctiva ENT: Normal External Ears, Nose and Mouth. Neck: Full range of motion. No meningismus. Resp: Clear to auscultation bilaterally Cardio: Regular rate and rhythm, no murmurs Abd: Soft, non tender, non distended. Normal bowel sounds Skin: No petechiae or rashes Back: No midline or flank tenderness Ext: No cyanosis, or edema Neur: Awake and alert Psych: Normal Mood and Affect Results 24 hrs Current Medications Medications Dose Sig/Timmy Start Time Status Last (Trade) Ordered Route PRN Stop Time Admin Dose Reason Admin Ibuprofen 800 mg ONCE ONCE 01/16/19 DC 01/16/19 (Motrin) PO 09:00 08:51 01/16/19 09:01 10 mg ONCE ONCE 01/16/19 DC 01/16/19 Dexamethasone IM 09:00 08:51 (Decadron) 01/16/19 09:01 750 mg ONCE ONCE 01/16/19 DC 01/16/19 Methocarbamol PO 09:00 08:51 (Robaxin) 01/16/19 09:01 Departure Diagnosis: Primary Impression: Back pain Back pain location: low back pain Chronicity: acute Back pain laterality: right Sciatica presence: with sciatica Sciatica laterality: sciatica of right side Qualified Codes: M54.41 - Lumbago with sciatica, right side Condition: Fair Patient Instructions: Back Pain (Acute Or Chronic) Referrals: [facility] YOU HAVE RECEIVED A MEDICAL SCREENING EXAM AND THE RESULTS INDICATE THAT YOU DO NOT HAVE A CONDITION THAT REQUIRES URGENT TREATMENT IN THE EMERGENCY DEPARTMENT. FURTHER EVALUATION AND TREATMENT OF YOUR CONDITION CAN WAIT UNTIL YOU ARE SEEN IN YOUR DOCTORS OFFICE WITHIN THE NEXT 1-2 DAYS. IT IS YOUR RESPONSIBILITY TO MAKE AN APPOINTMENT FOR FOLOW-UP CARE. IF YOU HAVE A PRIMARY DOCTOR --you should call your primary doctor and schedule an appointment IF YOU DO NOT HAVE A PRIMARY DOCTOR YOU CAN CALL OUR PHYSICIAN REFERRAL HOTLINE AT IF YOU CAN NOT AFFORD TO SEE A PHYSICIAN YOU CAN CHOSE FROM THE FOLLOWING [facility] [address] [facility]. [facility] [address] [facility] [facility] [address] [facility] [address] [facility] [facility] [address] [facility]. [facility]. [address] Additional Instructions: Llame al doctor MAANA y geeta sheila CRISTIANO PARA DENTRO DE 1-2 CHOUDHURY.Dgale a la secretaria que nosotros le instruimos hacer esta cristiano.Avise o llame si reed condicin se empeora antes de la cristiano. Regresa aqui si peor o no mejor. DIPTI LANDEROS DO Jan 16, 2019 09:59
[2019-01-16 10:02] VITALS: BP 135/68; PULSE 76; RESP 18
== END 2019-01-16 10:04 | disposition home or self-care (01) ==
LOC: FTE 03:13
DX: M54.41 Lumbago with sciatica, right side (principal)
CPT/HCPCS: 96372; 99284; J1100